=== PATIENT | female | born 1940 | race Caucasian/White ===

== ENCOUNTER 2017-01-23 06:35 | Inpatient (IN) ==
[~2017-01-23 06:35] MED LIST: ACETAMINOPHEN 500 MG TABLET PO ONE; CEFAZOLIN 1 G INJECTION IVP ONE; DEXAMETHASONE 4 MG/ML INJECTION IVP ONE; FAMOTIDINE PB 20 MG/50 ML BAG IV ONE; LIDOCAINE 1% (10mg/ml) 2mL INJ PF SDV ID ONE; MELOXICAM 15 MG TABLET PO ONE; METOCLOPRAMIDE 10mg/2ml INJECTION IVP ONE; NOZIN NASAL SWAB NAS ONE; ONDANSETRON 4 MG/2 ML INJECTION IVP ONE; TRANEXAMIC ACID 1,000 MG in NS 100 ML IV ONE
[2017-01-23 06:54] VITALS: BMI 23.1
[2017-01-23] MEDS ORDERED: TRANEXAMIC ACID 1,000 MG in NS 100 ML IV ONE (07:00)
--- NOTE | 2017-01-23 07:15 | History & Physical Update ---
- History and Physical Update Date: 01/23/17 Update: I evaluated this patient and found no changes in the history and clinical exam findings. The treatment plan and recommendations are also unchanged from the previous documentation.
[2017-01-23] MEDS ORDERED: PROPOFOL 500 MG/50 ML VIAL IV ONE (07:25)
[2017-01-23] MEDS: LR 1,000 ML IV SCH ×2 (07:41→10:00)
--- NOTE | 2017-01-23 07:41 | Anesthesia Preoperative Report ---
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 Proposed Procedure: right TKA NPO Since Date: 01/22/17 NPO Since Time: 22:00 Allergies/Adverse Reactions: Allergies Allergy/AdvReac Type Severity Reaction Status Date / Time No Known Drug Allergies Allergy Unknown Verified 01/23/17 07:14 - Vital Signs Vital Signs: Temperature 97.8 F 01/23/17 06:53 Pulse Rate 70 01/23/17 07:20 Respiratory Rate 16 01/23/17 06:53 Blood Pressure 128/76 01/23/17 06:53 Pulse Oximetry 95 01/23/17 06:53 Height and Weight: Height 1.63 m Weight 61.1 kg Body Mass Index 23.1 - Medications Inpatient Medications: Current Medications Lactated Ringer's (Lactated Ringers) 1,000 mls @ 50 mls/hr IV .Q20H SHAHEED Epinephrine HCl 0.25 mg/Bupivacaine HCl 30 ml/Morphine Sulfate 15 mg/Ketorolac Tromethamine 60 mg/Sodium Chloride 65.25 mls @ 0 mls/hr OPSITE INTRAOP ONE; Per Protocol PRN Reason: Protocol Stop: 01/23/17 08:01 Home Medications: Home Medications Medication Instructions Recorded Confirmed Type Aspirin 325 - 650 mg PO Q8HPRN PRN #0 01/02/13 12/25/16 History Docusate Sodium [Lerner' 1 cap PO DAILY PRN #0 cap 12/16/15 01/23/17 History Laxative] Loratadine/Pseudoephedrine 1 tab PO BID PRN #20 tab 12/21/15 12/25/16 History [Claritin-D 12 Hour Tablet] Is Patient on Beta Lori?: No - Surgical History GI Surgery/Treatments: Reports: Colonoscopy (x2, polyps, diverticulosis), EGD ( hx of H Pylori 2012) Musculoskeletal Surgery/Tx: Reports: Carpal Tunnel Release (sylvie) Reproductive Surgery/Treatment: Reports: Section, Hysterectomy ( abdominal) Anesthesia Reactions: None Hx Family Anesthesia Reaction: No History of Motion Sickness: No - Social History Smoking Status: Former smoker Hx Chewing Tobacco Use: No Second Hand Exposure: No Substance Use Type: does not use Alcohol Intake Frequency: does not drink - Pertinent Findings EKG Rhythm: Normal Sinus Rhythm - Physical Exam Respiratory Exam: Present: lungs clear Cardiovascular Exam: Present: regular rate and rhythm, no murmur - Airway Assessment Mallampati Score: II TMD: 3 Fingerbreadths Neck Extension: good Teeth: lower dentures Overall Assessment: no airway concerns - ASA ASA Score: 2 - Plan Regional/Trunk Block: Spinal Peripheral Nerve Block: Saphenous-Right - Discussion Discussion: Discussed risks/options/alternatives of anesthesia and questions answered. Patient consents. Nursing pain assessment noted. Present for Discussion: family member Attestation Statement: Prior to the delivery of any anesthetic medication, I examined the patient, developed the plan, obtained the patient's consent and discussed the risk and benefits of the procedure with the patient/guardian. - Additional Information Seen by Anesthesia: Yes
[2017-01-23] MEDS ORDERED: EPINEPHrine 0.25 MG, BUPIVACAINE 0.25% PF 30 ML, MORPHINE SULFATE 15 MG, KETOROLAC INJ ... OPSITE ONE (08:00)
[2017-01-23] MEDS ORDERED: VANCOMYCIN 1,000 MG INJECTION OP ONE (09:02)
[2017-01-23] MEDS ORDERED: VANCOMYCIN 1,000 MG INJECTION ONE (09:02)
--- NOTE | 2017-01-23 10:25 | Operative Note ---
- Procedure Side: right Preoperative Diagnosis: knee primary DJD Postoperative Diagnosis: Same as preoperative diagnosis. Operation: total knee arthroplasty Surgeon: Jefferson Ackerman MD Regulatory Compliance Engineer: Da Dunbar Complications: None. Regional/Trunk Block: Spinal Peripheral Nerve Block: Saphenous-Right Estimated Blood Loss: See Anesthesia Record. Fluids: Please see Anesthesia Record. Description of Procedure: Mrs. Garcia and her right knee were identified and marked in the preoperative holding area. She was brought back to the operating suite after a saphenous nerve block was placed in the preoperative holding area. Spinal anesthetic was administered and she was placed supine on the operating table. The right lower extremity was prepped and draped in my normal sterile fashion. Timeout was performed. The Pollen robot was used during the surgery. She had a partially fixed varus deformity with hyperextension. A standard anterior midline incision followed by medial parapatellar arthrotomy was performed. Anterior fat pad and meniscus were removed. The patella was resurfaced to a size 29. I then placed a tibial array to 2 poke hole incisions in the mid tibia just medial to the crest. The pins were placed bicortically. I then placed a second femoral array again using bicortical pins in the distal femoral metaphysis medially. Checkpoints were then placed both in the femur and the tibia. The bone was then registered with the Pollen robot. Osteophytes were removed and gaps were captured both 90 and 0 with correction. Given her hyperextension we balanced her at 17 mm in extension and 18 mm gaps in flexion. The Pollen robotic arm was then used to assist with the bone cuts. Posterior osteophytes and remaining meniscus were removed. Trial components were placed. We used a 3 femur and a 3 tibia with a 11 mm spacer. She tracked well and was well balanced throughout range of motion. The leg was exsanguinated and the tourniquet inflated to 250 mmHg. The bone was prepared for cementing and components were cemented into place and allowed to cure in extension. The tourniquet was let down and hemostasis obtained with electrocautery. The knee was ranged one more time to ensure good stability, balance and patellar tracking. 1 g of vancomycin powder was then placed into the knee joint. The capsulotomy was then closed with #1 Vicryl. I then left my library clerical assistant to close the subcutaneous tissue with 2-0 Vicryl. Running 4-0 Monocryl will be used in the subcuticular layer. Dermabond will be used on the skin followed by sterile dressing. After drapes are removed patient will be taken to recovery room under the care of anesthesia.
[2017-01-23] MEDS ORDERED: PROPOFOL 20 ML ONE (10:38)
[2017-01-23] MEDS ORDERED: ROPIVACAINE 0.5% (5mg/ml) 30ml INJ ONE (10:49)
--- NOTE | 2017-01-23 11:15 | Anesthesia Procedure Note ---
Peripheral Nerve Blockade - Procedure Physician: Harshad Ackerman MD Date: 01/23/17 Surgical Procedure: Right TKA Discussion: Discussed risks/options/alternatives of anesthesia and questions answered. Patient consents. Nursing pain assessment noted. Block Start: 11:07 Block Stop: 11:10 Blocked Employed: Adductor Canal Indication: Post-Operative Pain Approach: Right Side Confirmed Position: Supine Patient: Consent, Risks/Benefits Discussed, Informed, Post Block Act. Discussed IV Sedation: No Initial Vital Signs: Temperature 97.8 F 01/23/17 06:53 Temperature Source Oral 01/23/17 06:53 Pulse Rate 86 01/23/17 06:53 Respiratory Rate 16 01/23/17 06:53 Blood Pressure 128/76 01/23/17 06:53 Blood Pressure Mean 93 01/23/17 06:53 Blood Pressure Position Sitting 01/23/17 06:53 Pulse Oximetry 95 01/23/17 06:53 Oxygen Delivery Method 01/23/17 06:53 Post Vital Signs: Temperature 97.8 F 01/23/17 06:53 Pulse Rate 70 01/23/17 07:20 Respiratory Rate 16 01/23/17 06:53 Blood Pressure 128/76 01/23/17 06:53 Pulse Oximetry 95 01/23/17 06:53 Initial Pain Pain Score: 0 Post Block Pain Score: 0 Prep: Chlorhexadine/ETOH Ultrasound Used?: Yes - Injectate Ropivacaine (%): 0.5 Ropivacaine (mL): 20 Was Epi 1:200,000 Used?: No Injection: Injection made incrementally with constant monitoring and aspiration every ml
--- NOTE | 2017-01-23 11:31 | Anesthesia Postoperative Note ---
- Date and Time Date: 01/23/17 Time: 11:30 - Status Patient Participated in Evaluation: Patient Participated in Person Vital Signs: Temperature 97.8 F 01/23/17 06:53 Pulse Rate 70 01/23/17 07:20 Respiratory Rate 16 01/23/17 06:53 Blood Pressure 128/76 01/23/17 06:53 Pulse Oximetry 95 01/23/17 06:53 Respiratory Function: Airway Patent Cardiovascular Function: Regular Pulse EKG Rhythm: Normal Sinus Rhythm Mental Status: Alert and Oriented Pain Intensity: 0 Hydration: Taking PO Fluids, IV Infusing Complications During Recover: None Apparent - Follow-Up Instructions Instructions: Per Surgeon
[2017-01-23] MEDS ORDERED: NOZIN NASAL SWAB NAS ONE (11:38)
[2017-01-23] MEDS ORDERED: DiphenhydrAMINE 25 MG CAPSULE PO PRN (11:38)
[2017-01-23] MEDS ORDERED: DiphenhydrAMINE 50 MG/ML INJECTION IVP PRN (11:38)
[2017-01-23] MEDS ORDERED: LORazepam 1 MG TABLET PO PRN (11:38)
[2017-01-23] MEDS ORDERED: NAPROXEN 220 MG TABLET PO PRN (11:38)
[2017-01-23] MEDS ORDERED: ONDANSETRON 4 MG/2 ML INJECTION IVP PRN (11:38)
[2017-01-23] MEDS: NS 1,000 ML IV SCH (11:43)
[2017-01-23] MEDS: ACETAMINOPHEN 325 MG TABLET PO SCH ×4 (11:46→21:04)
[2017-01-23] MEDS: DOCUSATE SODIUM 100 MG CAPSULE PO SCH ×2 (11:46→21:09)
[2017-01-23] MEDS: POLYETHYL GLYCOL 3350 17gm PACKET PO SCH (11:47)
[2017-01-23] MEDS: ASPIRIN *EC* 325 MG TABLET PO SCH ×2 (11:47→21:04)
[2017-01-23] MEDS ORDERED: FALL RISK - PHARMACY CONSULT XX ONE (11:54)
--- NOTE | 2017-01-23 12:05 | XRay Report ---
Indication: postoperative image PROCEDURE: XR knee RT 2V: Encounter: Initial Comparison: December 25, 2016 Findings: Postoperative changes of right total knee replacement are seen. There is expected postoperative subcutaneous gas. No evidence of hardware failure or acute fracture. No retained radiopaque surgical instruments or sponges. Overlying material causing artifact. Impression: New right total knee prosthesis without evidence of immediate complication. .
[2017-01-23] MEDS: TRAMADOL 50 MG TABLET PO PRN ×2 (15:12→21:09)
[2017-01-23] MEDS: NOZIN NASAL SWAB NAS SCH ×2 (15:13→21:04)
[2017-01-23] MEDS: CEFAZOLIN 2 G in NS 100 ML IV SCH (16:47)
[2017-01-23] MEDS ORDERED: SENNOSIDES 8.6 MG TABLET PO SCH (21:00)
[2017-01-24] MEDS: CEFAZOLIN 2 G in NS 100 ML IV SCH (00:27)
[2017-01-24] MEDS: NS 1,000 ML IV SCH (01:22)
[2017-01-24] MEDS: NOZIN NASAL SWAB NAS SCH ×2 (04:56→06:26)
[2017-01-24] MEDS ORDERED: SENNOSIDES 8.6 MG TABLET PO PRN (07:25)
--- NOTE | 2017-01-24 07:46 | Orthopedic Progress Note ---
Date: Subjective/Severity of Illness: Samara is doing well, pain is controlled. She slept well. She denies CP, SOB or calf pain. Orthopedic Objective PO Vital signs: Temperature 97.6 F 01/24/17 04:55 Pulse Rate 71 01/24/17 04:55 Respiratory Rate 17 01/24/17 04:55 Blood Pressure 118/66 01/24/17 04:55 Pulse Oximetry 96 01/24/17 04:55 Height and Weight: Height 5 ft 4 in Weight 134 lb 11.239 oz Body Mass Index 23.1 - Constitutional General Appearance: Present: alert, orientated x3, no acute distress - Respiratory Exam Present: non-labored - Cardiovascular Exam Capillary Refill: < 2-3 Seconds - Abdominal Exam Absent: tenderness - Extremities Exam Extremities: Present: pulses intact - Surgical Site Incision: clean, dry, intact, Mepilex dressing intact, other (pin site had been saturated, now coagulated) - Integumentary Exam Present: pink, warm, dry - Neurological Exam Present: intact to light touch - Psychiatric Exam Present: normal affect - Labs Result Diagrams: 01/24/17 04:23 01/24/17 04:23 Abnormal lab results 01/24/17 01/24/17 Range/Units 04:23 04:23 RBC 3.40 L (4.00-5.20) M/MM3 Hgb 10.2 L (12-16) GM/DL Hct 30.8 L (36-46) % Chloride 109 H (98-107) MEQ/L Anion Gap 3 L (5-15) MEQ/L H & H 01/24/17 Range/Units 04:23 Hgb 10.2 L (12-16) GM/DL Hct 30.8 L (36-46) % Orthopedic Assessment and Plan - Anticoagulation Therapy Anticoagulation: ASA 325 mg PO BID x6 weeks Hospital Course Summary Disclaimer: The visit summary below is not to be considered part of the above Progress Note.
--- NOTE | 2017-01-24 07:52 | Discharge Summary ---
Orthopedic Discharge Info Date of admission: 01/23/17 06:35 Primary care physician: Jefferson Jeffers MD Attending Physician: Harshad Ackerman MD Consults: 01/23/17 06:36 Consult to Anesthesiology [CONS] Routine Consulting Provider: MILY Aaron Reason For Exam: Preoperative Assessment 01/23/17 11:38 Case Management Consult [CONS] Routine Reason For Exam: Discharge Planning DME-Walker [CONS] Routine Height: 5 ft 4 in Weight: 134 lb 11.239 oz Comment: change dressing in 2 weeks Total Joint Outpatient Therapy [CONS] Routine Comment: change dressing in 2 weeks - Procedures Procedures: Right TKA - Laboratory Result Diagrams: 01/24/17 04:23 01/24/17 04:23 Laboratory: Abnormal lab results 01/24/17 01/24/17 Range/Units 04:23 04:23 RBC 3.40 L (4.00-5.20) M/MM3 Hgb 10.2 L (12-16) GM/DL Hct 30.8 L (36-46) % Chloride 109 H (98-107) MEQ/L Anion Gap 3 L (5-15) MEQ/L H & H 01/24/17 Range/Units 04:23 Hgb 10.2 L (12-16) GM/DL Hct 30.8 L (36-46) % Orthopedic Discharge HPI - HPI Comments This patient was admitted for elective surgical tx of end stage degenerative joint disease that failed to respond to conservative treatment. Further details of this is found in the admission H&P. Orthopedic Hospital Course Hospital course: 01/24/17 07:48 After appropriate preoperative clearance and signing of operative consent, the patient was given IV antibiotics, according to orthopedic protocol. The patient was taken to the operating room and underwent elective joint arthroplasty. Following surgery, antibiotics were discontinued less than 24 hours according to joint protocol. Appropriate anticoagulants were initiated and SCDs added for DVT prevention. The dressing was clean, dry, and intact. Pain control was obtained via multimodal approach. Bowel motivation addressed with scheduled and PRN medications. Early mobilization was initiated through PT services. Discharge arrangements made by a collaborative effort between the patient and Case Management. Follow-up is scheduled in 2-3 weeks. Discharge instructions given by orthopedic providers and nursing staff at discharge. Discharge condition was good. Ongoing care required?: No - Postoperative Anemia patient received IVF, labs monitored daily, no intervention required, HGB drop- acceptable Discharge Plan - Med Rec/Dispo Referrals/Follow Up: Harshad Ackerman MD [Physician] - 02/14/17 1:00 pm [place] Inst[place] [facility] [place] Additional Instructions: [facility] WILL CALL YOU TO SET UP TIME FOR THEIR FIRST VISIT TO YOUR HOME TO WORK ON THERAPY. Prescriptions: New Aspirin *EC* [Ecotrin] 325 mg PO BID #84 tab Naproxen [Aleve] 440 mg PO BID PRN #84 tab PRN Reason: Pain Acetaminophen [Tylenol] 650 mg PO QID #100 tab Tramadol [Ultram] 50 - 100 mg PO Q6H PRN #60 tab PRN Reason: Pain Continue Aspirin 325 - 650 mg PO Q8HPRN PRN #0 PRN Reason: Pain Docusate Sodium [Lerner' Laxative] 1 cap PO DAILY PRN #0 cap PRN Reason: CONSTIPATION/STOOL SOFTENING Loratadine/Pseudoephedrine [Claritin-D 12 Hour Tablet] 1 tab PO BID PRN #20 tab PRN Reason: Allergy Symptoms - Disposition [facility]
[2017-01-24 08:33] VITALS: BP 131/72; PULSE 62; RESP 18; TEMP 97.8; O2SAT 100
[2017-01-24] MEDS: DOCUSATE SODIUM 100 MG CAPSULE PO SCH (09:04)
[2017-01-24] MEDS: POLYETHYL GLYCOL 3350 17gm PACKET PO SCH (09:04)
[2017-01-24] MEDS: ASPIRIN *EC* 325 MG TABLET PO SCH (09:04)
[2017-01-24] MEDS: TRAMADOL 50 MG TABLET PO PRN (09:05)
[2017-01-24] MEDS: ACETAMINOPHEN 325 MG TABLET PO SCH (09:05)
[2017-01-25] MEDS ORDERED: BISACODYL 10 MG SUPPOSITORY RECTALLY SCH (20:00)
== END 2017-01-24 13:54 | disposition home health service (06) | DRG 470 ==
LOC: SRG 06:35
PROVIDERS: ADMIT Orthopaedic Surgery; ATTEND Orthopaedic Surgery